=== PATIENT | male | born 1960 | race Hispanic/Latino ===

== ENCOUNTER 2022-09-04 08:50 | Outpatient (CLI) | payer OTHER | END 2022-09-04 08:51 | disposition home or self-care (01) | LOC: CSHWCC 08:50 | PROVIDERS: ATTEND Nurse Practitioner Family | DX: S81.802D Unspecified open wound, left lower leg, subsequent encounter (principal); R60.0 Localized edema | CPT/HCPCS: 11042; 29581; 99203; G0463 ==

== ENCOUNTER 2022-09-14 12:58 | Outpatient (CLI) | payer OTHER | END 2022-09-14 12:59 | disposition home or self-care (01) | LOC: CSHWCC 12:58 | PROVIDERS: ATTEND Nurse Practitioner Family | DX: S81.802D Unspecified open wound, left lower leg, subsequent encounter (principal); R60.0 Localized edema | CPT/HCPCS: 29581; 97597; 97607 ==

== ENCOUNTER 2022-09-18 08:06 | Outpatient (CLI) | payer OTHER | END 2022-09-18 08:07 | disposition home or self-care (01) | LOC: CSHWCC 08:06 | PROVIDERS: ATTEND Nurse Practitioner Family | DX: S81.802D Unspecified open wound, left lower leg, subsequent encounter (principal); R60.0 Localized edema | CPT/HCPCS: 29581; 97607 ==

== ENCOUNTER 2022-09-21 09:41 | Outpatient (CLI) | payer OTHER | END 2022-09-21 09:42 | disposition home or self-care (01) | LOC: CSHWCC 09:41 | PROVIDERS: ATTEND Nurse Practitioner Family | DX: S81.802D Unspecified open wound, left lower leg, subsequent encounter (principal); R60.0 Localized edema | CPT/HCPCS: 29581; 97607 ==

== ENCOUNTER 2022-09-26 09:12 | Outpatient (CLI) | payer OTHER | END 2022-09-26 09:13 | disposition home or self-care (01) | LOC: CSHWCC 09:12 | PROVIDERS: ATTEND Nurse Practitioner Family | DX: R60.0 Localized edema (principal); S81.802D Unspecified open wound, left lower leg, subsequent encounter | CPT/HCPCS: 29581 ==

== ENCOUNTER 2022-10-05 11:00 | Outpatient (CLI) | payer OTHER | END 2022-10-05 11:01 | disposition home or self-care (01) | LOC: CSHWCC 11:00 | PROVIDERS: ATTEND Nurse Practitioner Family | DX: S81.802D Unspecified open wound, left lower leg, subsequent encounter (principal); R60.0 Localized edema | CPT/HCPCS: 29581 ==